=== PATIENT | female | born 1980 | race Caucasian/White ===

== ENCOUNTER 2019-10-08 06:00 | Outpatient (RCR) | payer OTHER, SELFPAY | END 2019-10-23 23:59 | disposition home or self-care (01) | LOC: WPT 06:00 | PROVIDERS: Family Provider Nurse Practitioner Family; Referring Provider Anesthesiology; Visit Provider Anesthesiology | DX: M54.16 Radiculopathy, lumbar region (principal); M47.817 Spondylosis without myelopathy or radiculopathy, lumbosacral region; M53.3 Sacrococcygeal disorders, not elsewhere classified | CPT/HCPCS: 97110; 97140; 97161; 97164; G0283 ==

== ENCOUNTER 2019-10-16 11:06 | Outpatient (CLI) | payer OTHER, SELFPAY ==
--- NOTE | 2019-10-16 11:12 | XR_ITS ---
WS: [id number] LATERAL LUMBAR SPINE: 3 view. Lateral radiographs are performed in upright neutral, flexion and extension to the patient's toleranc e. HISTORY: INTERVERTEBRAL DISC DEGENERATION COMPARISON: None available. Slight increase in lumbar lordosis. Moderate degenerative disc disease at L5-S1. No fractures. With f lexion and extension there is no instability. XR/XR lumbar spine f/e only [id number] IMPRESSION: No lumbar spine instability.
--- NOTE | 2019-10-16 11:14 | MR_ITS ---
WS: [id number] MRI LUMBAR SPINE NONCONTRAST HISTORY: INTERVERTEBRAL DISC DEGENERATION COMPARISON: None available. TECHNIQUE: Sagittal and axial multisequence imaging is submitted. Mild ectopia of the cerebellar tonsils. Normal lumbar alignment with no compression fractures or marrow edema. L5 retrolisthesis by 3.3 mm. Severe disc space narrowing and desiccation at L5-S1. Fluid along the di sc of L5-S1 with chronic endplate changes. No fracture. Conus terminates normally at T12. L1-L2: Mild facet arthritis. No stenosis. L2-L3: Mild facet arthritis. No stenosis. L3-L4: Mild annular disc bulging with facet and ligamentum flavum arthropathy. No significant stenosi s. L4-L5: Diffuse annular disc bulging with a central fissure. Ligamentum flavum hypertrophy and facet a rthritis. Fluid in the facet joints. Nerve roots are becoming slightly clumped within the thecal sac. There is mild central and bilateral subarticular recess stenosis. L5-S1: Diffuse annular disc bulging. Focal disc protrusion centrally migrated inferior to the disc le sri. There is very mild disc contact on the S1 nerve roots bilaterally but no displacement. Mild cent ral and subarticular recess stenosis. Moderate bilateral foraminal stenosis. Fluid in the facet joint s bilaterally at L5-S1. Complex cyst in the RIGHT adnexa. Cyst measures 3.2 x 3.4 cm. There is an additional complex mixed si gnal intensity tubular structure towards the LEFT which I believe is probably the GI tract. MR/MR lumbar spine wo con* [id number] IMPRESSION: 1. Advanced degenerative disc disease at L5-S1. Partially extruded disc inferi or to the disc level with resultant mild central, subarticular recess and bilat eral foraminal stenosis. 2. Mild central and bilateral foraminal stenosis at L4-5. 3. Complex cyst in the RIGHT adnexa. Favor this is probably a hemorrhagic cyst . Recommend follow-up transvaginal ultrasound.
== END 2019-10-16 11:07 | disposition home or self-care (01) ==
LOC: RADWPI 11:10
PROVIDERS: Family Provider Nurse Practitioner Family; Visit Provider Anesthesiology
DX: M54.17 Radiculopathy, lumbosacral region (principal); M47.817 Spondylosis without myelopathy or radiculopathy, lumbosacral region; M51.37 Other intervertebral disc degeneration, lumbosacral region; M48.061 Spinal stenosis, lumbar region without neurogenic claudication
CPT/HCPCS: 72120; 72148

== ENCOUNTER 2019-10-24 06:00 | Outpatient (RCR) | payer OTHER, SELFPAY | END 2019-11-23 23:59 | disposition home or self-care (01) | LOC: WPT 06:00 | PROVIDERS: PCP Nurse Practitioner Family; Referring Provider Anesthesiology; Visit Provider Anesthesiology | DX: M54.16 Radiculopathy, lumbar region (principal); M53.3 Sacrococcygeal disorders, not elsewhere classified; M47.817 Spondylosis without myelopathy or radiculopathy, lumbosacral region | CPT/HCPCS: 97110; 97140; 97530 ==

== ENCOUNTER → 2019-10-28 00:01 | Outpatient (BNVA) | payer OTHER, SELFPAY | PROVIDERS: Family Provider Nurse Practitioner Family; Visit Provider Nurse Practitioner Family | DX: R35.0 Frequency of micturition (principal) | CPT/HCPCS: 81001 ==

== ENCOUNTER → 2019-11-05 11:21 | Outpatient (BNVA) | payer OTHER, SELFPAY | PROVIDERS: PCP Nurse Practitioner Family; Visit Provider Nurse Practitioner Family | DX: F50.9 Eating disorder, unspecified (principal); E03.9 Hypothyroidism, unspecified; H10.10 Acute atopic conjunctivitis, unspecified eye; H55.09 Other forms of nystagmus; R53.83 Other fatigue; R63.5 Abnormal weight gain | CPT/HCPCS: 36415; 80053; 80061; 81001; 82306; 83036; 84443; 85025 ==

== ENCOUNTER 2019-12-25 09:21 | Outpatient (CLI) | payer OTHER, SELFPAY ==
--- NOTE | 2019-12-25 09:37 | US_ITS ---
NOTE: Report was unsigned for reason: Ordering provider was edited. Original Signature date and time was: 12/25/19 @ 6763 WS: [id number] ULTRASOUND PELVIS TECHNIQUE: Transvaginal. CLINICAL INFORMATION: COMPLEX CYST OF RIGHT OVERY LMP: : No. COMPARISON: 2018 FINDINGS: Overlying bowel somewhat limits examination. Uterus Interval hysterectomy Adnexa: No adnexal masses. Right ovary size: 4.2 x 1.5 x 2.0 cm. Left ovary not seen. Free fluid: None. Other findings: None. [facility] US/US transvaginal [id number] IMPRESSION: 1. Prior hysterectomy. 2. Left ovary not well visualized. 3. Small 9-10mm follicles right ovary. 4. No free fluid in the cul-de-sac.
== END 2019-12-25 09:22 | disposition home or self-care (01) ==
LOC: US 09:22
PROVIDERS: PCP Nurse Practitioner Family; Visit Provider Obstetrics & Gynecology
DX: N83.291 Other ovarian cyst, right side (principal)
CPT/HCPCS: 76830

== ENCOUNTER 2022-02-22 12:01 | Outpatient (CLI) | payer OTHER, SELFPAY ==
--- NOTE | 2022-02-22 12:09 | XR_ITS ---
WS: [id number] Exam: XR chest 2V* [id number] Date/Time of Exam: 02/22/2022 12:09 PM Reason For Exam: Chronic Cough No priors. The lungs are clear and fully expanded. Normal cardiomediastinal silhouette. No pleural effusions. [place] structures are intact. Partially visualized scoliosis of the lower thoracic and upper lumbar spine . XR/XR chest 2V* [id number] IMPRESSION: 1. No acute cardiopulmonary finding.
== END 2022-02-22 12:02 | disposition home or self-care (01) ==
LOC: RAD 12:03
PROVIDERS: PCP Internal Medicine; Visit Provider Internal Medicine
DX: R05.3 Chronic cough (principal)
CPT/HCPCS: 71046

== ENCOUNTER → 2022-03-29 09:40 | Outpatient (BNVA) | payer OTHER, SELFPAY | PROVIDERS: PCP Internal Medicine; Visit Provider Internal Medicine | DX: E03.9 Hypothyroidism, unspecified (principal) | CPT/HCPCS: 84443 ==

== ENCOUNTER 2024-12-31 09:30 | Outpatient (CLI) | payer OTHER, SELFPAY ==
--- NOTE | 2024-12-31 09:39 | FL_ITS ---
WS: [id number] Exam: FL barium swallow modifd [id number] Date/Time of Exam: 12/31/2024 9:39 AM Reason For Exam: Other dysphagia Fluoroscopy time: 2min [id number] minutes # of spot films: Modified barium swallow test was performed in conjunction with the speech therapy service. Oral pharyngeal phase of swallowing was normal. The patient tolerated all consistencies of barium mixture foodstuffs without penetration or aspiration. The patient swallowed a barium tablet without difficulty. FL/FL barium swallow modifd [id number] IMPRESSION: 1. Unremarkable modified barium swallow study. A separate report with recommendations will follow from the speech therapy serv ice.
== END 2024-12-31 09:31 | disposition home or self-care (01) ==
PROVIDERS: PCP Nurse Practitioner Family; Visit Provider Specialist
DX: R13.19 Other dysphagia (principal); R05.3 Chronic cough
CPT/HCPCS: 74230; 92611